=== PATIENT | male | born 1940 | race Caucasian/White ===

== ENCOUNTER 2023-09-29 05:27 | Inpatient (IN) | payer OTHER, BC ==
[~2023-09-29] VITALS: Ht 177.8 cm; Wt 69.6 kg
[2023-09-29 05:39] VITALS: BP_SYST 166; PULSE 89; RESP 18; TEMP 100.6; O2SAT 97
[2023-09-29 06:10] LABS: BASOPHILS # (AUTO) 0.1 K/uL (0.0-0.2); BASOPHILS % (AUTO) 0.7 % (0.0-2.0); EOSINOPHILS # (AUTO) 0.2 K/uL (0.0-0.4); EOSINOPHILS % (AUTO) 1.5 % (0.0-4.0); HEMATOCRIT 36.5 % (36-54); HEMOGLOBIN 12.2 g/dL (14.0-18.0); LYMPHOCYTES # (AUTO) 2.2 K/uL (1.0-5.5); LYMPHOCYTES % (AUTO) 20.9 % (20.5-51.5); MEAN CORPUSCULAR HEMOGLOBIN 31 pg (27-31); MEAN CORPUSCULAR HGB CONC 34 % (32-36); MEAN CORPUSCULAR VOLUME 91 fL (79.0-98.0); MONOCYTES # (AUTO) 0.9 K/uL (0.0-1.0); MONOCYTES % (AUTO) 8.3 % (1.7-9.3); NEUTROPHILS # (AUTO) 7.3 K/uL (1.8-7.7); NEUTROPHILS % (AUTO) 68.6 % (40.0-70.0); PLATELET COUNT (AUTO) 144 K/uL (130-430); RED CELL DISTRIBUTION WIDTH 14.8 % (9.0-15.0); WHITE BLOOD COUNT (AUTO) 10.7 K/uL (4.8-10.8)
[2023-09-29 06:30] LABS: ANION GAP 10 (5-15); CALCIUM 8.7 mg/dL (8.4-11.0); CARBON DIOXIDE 24 mmol/L (23-29); CHLORIDE 107 mmol/L (98-107); CREATININE 1.56 mg/dL (0.55-1.30); GLUCOSE 115 mg/dL (74-106); POTASSIUM 4.1 mmol/L (3.5-5.1); SODIUM SERUM 141 mmol/L (136-145); UREA NITROGEN, BLOOD 30 mg/dL (8-21)
[2023-09-29 06:57] LABS: INFLUENZA TYPE A Negative (NEGATIVE); INFLUENZA TYPE B NEGATIVE (NEGATIVE)
[2023-09-29] MEDS ORDERED: ONDANSETRON HCL 4 MG/2 ML VIAL IVP ONE (07:30)
[2023-09-29] MEDS ORDERED: MORPHINE 4 MG INJ. 4 MG/ML VIAL IVP ONE (07:30)
[2023-09-29] MEDS ORDERED: CLOP75TA32 PO (08:14)
[2023-09-29] MEDS ORDERED: LORA10TA7 PO (08:14)
[2023-09-29] MEDS ORDERED: CLON0.1T PO (08:14)
[2023-09-29] MEDS ORDERED: TAMS0.4C96 PO (08:14)
[2023-09-29] MEDS ORDERED: CLON1PAT11 TP (08:14)
[2023-09-29] MEDS ORDERED: FINE10TA PO (08:14)
[2023-09-29] MEDS ORDERED: LEVO75TA7 PO (08:14)
[2023-09-29] MEDS ORDERED: LINA290C PO (08:14)
[2023-09-29] MEDS ORDERED: PRIM50TA5 PO (08:14)
[2023-09-29] MEDS ORDERED: ROSU20TA73 PO (08:14)
[2023-09-29] MEDS: PRIMIDONE 50 MG TABLET PO SCH ×2 (09:00→20:57)
[2023-09-29] MEDS: TAMSULOSIN HCL 0.4 MG CAP PO SCH ×2 (09:00→11:46)
[2023-09-29] MEDS ORDERED: ONDANSETRON HCL 4 MG/2 ML VIAL IVP PRN (09:00)
[2023-09-29] MEDS ORDERED: POTASSIUM CHLORIDE 20 MEQ TABLET.ER PO PRN (09:00)
[2023-09-29] MEDS ORDERED: MUPIROCIN 2% TOPICAL OINTMENT 22 GM NS PRN (09:00)
[2023-09-29] MEDS ORDERED: MAGNESIUM SULFATE 50 ML IV PRN (09:00)
[2023-09-29] MEDS ORDERED: DOCUSATE SODIUM 100 MG CAPSULE PO PRN (09:00)
[2023-09-29] MEDS ORDERED: MORPHINE 2 MG/ML INJ. SYRINGE IVP PRN ×2 (09:00)
[2023-09-29] MEDS ORDERED: ACETAMINOPHEN 325 MG TABLET PO PRN (09:00)
[2023-09-29 09:07] LABS: BILIRUBIN,URINE NEGATIVE (NEGATIVE); CLARITY/URINE CLEAR (CLEAR); COLOR,URINE YELLOW (YELLOW); GLUCOSE,URINE NEGATIVE (NEGATIVE); KETONES,URINE NEGATIVE (NEGATIVE); LEUKOCYTE ESTERASE ,URINE NEGATIVE (NEGATIVE); NITRITE, URINE NEGATIVE (NEGATIVE); PH,URINE 5.5 (5.0-8.0); PROTEIN URINE NEGATIVE (NEGATIVE); UROBILINOGEN,URINE 0.2 (0.2-1.0)
[2023-09-29 09:22] LABS: BLOOD, URINE TRACE (NEGATIVE)
[2023-09-29] MEDS: HEPARIN SODIUM,PORCINE 5,000 UNITS/ML VIAL SUBCUT SCH ×2 (09:29→20:59)
[2023-09-29] MEDS: ASPIRIN 81 MG TAB.CHEW PO SCH (09:29)
[2023-09-29 09:37] LABS: RBC,URINE 0-3 /HPF (0-3); WBC,URINE 0-3 /HPF (0-3)
[2023-09-29 09:38] LABS: BACTERIA,URINE None Seen /HPF (None Seen)
[2023-09-29] MEDS ORDERED: CLOPIDOGREL BISULFATE 75 MG TABLET PO ONE (10:45)
[2023-09-29 11:02] VITALS: BP_SYST 148; PULSE 69; RESP 19; TEMP 99.9
[2023-09-29 11:13] VITALS: O2SAT 98
[2023-09-29] MEDS: LEVOTHYROXINE SODIUM 0.075 MG TABLET PO SCH (11:46)
[2023-09-29] MEDS: PIPERACILLIN/TAZO 3.375 GM in NS 50 ML IV SCH ×3 (12:57→23:49)
[2023-09-29 16:16] VITALS: BP_SYST 103; PULSE 59; RESP 19; O2SAT 98
[2023-09-29] MEDS: ACETAMINOPHEN 325 MG TABLET PO PRN (16:32)
[2023-09-29 20:30] VITALS: BP_SYST 121; PULSE 62; RESP 20; TEMP 98.1; O2SAT 96
[2023-09-29] MEDS: ATORVASTATIN 20 MG TABLET PO SCH (20:57)
[2023-09-29] MEDS: cloNIDine HCL 0.1 MG TABLET PO SCH (20:58)
[2023-09-29] MEDS ORDERED: cloNIDine HCL 0.2 MG TABLET PO SCH (21:00)
[2023-09-29] MEDS ORDERED: VANCOMYCIN HCL 1 GM/NS PREMIX 250 ML IV ONE (21:15)
[2023-09-29 22:00] VITALS: O2SAT 95
[2023-09-29] MEDS ORDERED: VANCOMYCIN HCL 1000 MG/VIAL IV ONE (23:10)
[2023-09-30] VITALS (7 sets, daily range): BP systolic 118–163; PULSE 56–68; RESP 16–20; TEMP 97.3–100.3; O2SAT 95–100
[2023-09-30 04:36] LABS: BASOPHILS % (AUTO) 0.5 % (0.0-2.0); EOSINOPHILS # (AUTO) 0.1 K/uL (0.0-0.4); EOSINOPHILS % (AUTO) 0.7 % (0.0-4.0); HEMATOCRIT 31.6 % (36-54); HEMOGLOBIN 10.8 g/dL (14.0-18.0); LYMPHOCYTES # (AUTO) 1.6 K/uL (1.0-5.5); MEAN CORPUSCULAR HEMOGLOBIN 31 pg (27-31); MEAN CORPUSCULAR HGB CONC 34 % (32-36); MEAN CORPUSCULAR VOLUME 91 fL (79.0-98.0); MONOCYTES # (AUTO) 1.2 K/uL (0.0-1.0); MONOCYTES % (AUTO) 12.5 % (1.7-9.3); NEUTROPHILS # (AUTO) 6.9 K/uL (1.8-7.7); NEUTROPHILS % (AUTO) 70.3 % (40.0-70.0); PLATELET COUNT (AUTO) 121 K/uL (130-430); RED BLOOD CELL COUNT(AUTO) 3.48 MIL/uL (4.2-6.2); RED CELL DISTRIBUTION WIDTH 14.6 % (9.0-15.0); WHITE BLOOD COUNT (AUTO) 9.9 K/uL (4.8-10.8)
[2023-09-30 04:54] LABS: INR 1.1 (0.80-1.20); PROTHROMBIN TIME 11.8 SECS (9.5-12.5)
[2023-09-30 04:55] LABS: ALANINE AMINOTRANSFERASE 15 U/L (12-78); ALBUMIN 2.6 g/dL (3.4-4.8); ANION GAP 9 (5-15); ASPARTATE AMINOTRANSFERASE 22 U/L (10-37); CALCIUM 7.8 mg/dL (8.4-11.0); CARBON DIOXIDE 24 mmol/L (23-29); CHLORIDE 107 mmol/L (98-107); CHOLESTEROL 102 mg/dL (<200); CREATININE 2.17 mg/dL (0.55-1.30); GLUCOSE 101 mg/dL (74-106); HDL CHOLESTEROL 67 mg/dL (>45); POTASSIUM 4.4 mmol/L (3.5-5.1); SODIUM SERUM 140 mmol/L (136-145); THYROID STIMULATING HORMONE 2.71 uIu/mL (0.34-4.82); TOTAL BILIRUBIN 0.5 mg/dL (0.0-1.0); TOTAL PROTEIN, SERUM 5.7 g/dL (6.4-8.3); TRIGLYCERIDES 37 mg/dL (30-150); UREA NITROGEN, BLOOD 34 mg/dL (8-21)
[2023-09-30] MEDS: PIPERACILLIN/TAZO 3.375 GM in NS 50 ML IV SCH ×3 (06:27→17:03)
[2023-09-30] MEDS: TAMSULOSIN HCL 0.4 MG CAP PO SCH (09:09)
[2023-09-30] MEDS: CLOPIDOGREL BISULFATE 75 MG TABLET PO SCH (09:10)
[2023-09-30] MEDS: ASPIRIN 81 MG TAB.CHEW PO SCH (09:10)
[2023-09-30] MEDS: cloNIDine HCL 0.1 MG TABLET PO SCH ×2 (09:15→22:19)
[2023-09-30] MEDS: HEPARIN SODIUM,PORCINE 5,000 UNITS/ML VIAL SUBCUT SCH ×2 (09:19→22:20)
[2023-09-30] MEDS: LEVOTHYROXINE SODIUM 0.075 MG TABLET PO SCH (09:25)
[2023-09-30] MEDS: PRIMIDONE 50 MG TABLET PO SCH ×2 (09:25→22:22)
[2023-09-30] MEDS ORDERED: MILK OF MAGNESIA 30 ML UDC PO ONE (11:00)
[2023-09-30] MEDS ORDERED: DOCUSATE SODIUM 100 MG CAPSULE PO PRN (11:00)
[2023-09-30] MEDS ORDERED: VANCOMYCIN HCL 500 MG in NS 100 ML IV SCH (21:00)
[2023-09-30] MEDS: ATORVASTATIN 20 MG TABLET PO SCH (22:17)
[2023-10-01] VITALS (8 sets, daily range): BP systolic 153–167; PULSE 51–82; RESP 16–18; TEMP 97.2–100.8; O2SAT 95–98
[2023-10-01] MEDS: PIPERACILLIN/TAZO 3.375 GM in NS 50 ML IV SCH ×4 (00:19→18:03)
[2023-10-01 05:39] LABS: BASOPHILS % (AUTO) 0.5 % (0.0-2.0); EOSINOPHILS # (AUTO) 0.2 K/uL (0.0-0.4); EOSINOPHILS % (AUTO) 1.9 % (0.0-4.0); HEMATOCRIT 33.2 % (36-54); HEMOGLOBIN 11.4 g/dL (14.0-18.0); LYMPHOCYTES % (AUTO) 23.7 % (20.5-51.5); MEAN CORPUSCULAR HEMOGLOBIN 31 pg (27-31); MEAN CORPUSCULAR HGB CONC 34 % (32-36); MEAN CORPUSCULAR VOLUME 91 fL (79.0-98.0); MONOCYTES # (AUTO) 1.1 K/uL (0.0-1.0); MONOCYTES % (AUTO) 12.9 % (1.7-9.3); NEUTROPHILS # (AUTO) 5.2 K/uL (1.8-7.7); PLATELET COUNT (AUTO) 131 K/uL (130-430); RED BLOOD CELL COUNT(AUTO) 3.66 MIL/uL (4.2-6.2); RED CELL DISTRIBUTION WIDTH 14.5 % (9.0-15.0); WHITE BLOOD COUNT (AUTO) 8.6 K/uL (4.8-10.8)
[2023-10-01 06:01] LABS: ANION GAP 9 (5-15); CALCIUM 8.3 mg/dL (8.4-11.0); CARBON DIOXIDE 25 mmol/L (23-29); CHLORIDE 108 mmol/L (98-107); GLUCOSE 96 mg/dL (74-106); POTASSIUM 4.2 mmol/L (3.5-5.1); SODIUM SERUM 142 mmol/L (136-145); UREA NITROGEN, BLOOD 32 mg/dL (8-21)
[2023-10-01 06:02] LABS: CREATININE 2.11 mg/dL (0.55-1.30)
[2023-10-01] MEDS: ASPIRIN 81 MG TAB.CHEW PO SCH (09:37)
[2023-10-01] MEDS: CLOPIDOGREL BISULFATE 75 MG TABLET PO SCH (09:37)
[2023-10-01] MEDS: LEVOTHYROXINE SODIUM 0.075 MG TABLET PO SCH (09:37)
[2023-10-01] MEDS: cloNIDine HCL 0.1 MG TABLET PO SCH (09:38)
[2023-10-01] MEDS: HEPARIN SODIUM,PORCINE 5,000 UNITS/ML VIAL SUBCUT SCH (09:41)
[2023-10-01] MEDS: PRIMIDONE 50 MG TABLET PO SCH (09:47)
[2023-10-01] MEDS: TAMSULOSIN HCL 0.4 MG CAP PO SCH (09:47)
[2023-10-01] MEDS: ACETAMINOPHEN 325 MG TABLET PO PRN (15:13)
== END 2023-10-01 19:26 | disposition home or self-care (01) | DRG 682 ==
LOC: SED 05:27 → STU 08:48
PROVIDERS: ADMIT Family Medicine; ATTEND Family Medicine
DX: N17.0 Acute kidney failure with tubular necrosis (principal); I21.A1 Myocardial infarction type 2; R78.81 Bacteremia; I12.9 Hypertensive chronic kidney disease with stage 1 through stage 4 chronic kidney disease, or unspecified chronic kidney disease; N40.0 Benign prostatic hyperplasia without lower urinary tract symptoms; I25.10 Atherosclerotic heart disease of native coronary artery without angina pectoris; Z96.641 Presence of right artificial hip joint; I35.0 Nonrheumatic aortic (valve) stenosis; N18.30 Chronic kidney disease, stage 3 unspecified; E78.5 Hyperlipidemia, unspecified; E03.9 Hypothyroidism, unspecified; Z20.822 Contact with and (suspected) exposure to COVID-19; Z95.2 Presence of prosthetic heart valve; Z95.5 Presence of coronary angioplasty implant and graft; Z79.899 Other long term (current) drug therapy; B95.8 Unspecified staphylococcus as the cause of diseases classified elsewhere
CPT/HCPCS: 36415; 71045; 80048; 80053; 80061; 81000; 81001; 81015; 83605; 83735; 83880; 84443; 84484; 85025; 85379; 85610-TC; 85651-TC; 85730-TC; 87040; 93005; 93306; 96374; 96375; 97116-GP; 97530-GP; 99285; G0378; J1644; J2270; J2405; J2543; J3370